=== PATIENT | female | born 1935 | race Caucasian/White ===

== ENCOUNTER → 2018-06-09 11:29 | Outpatient (CLI) | payer MEDICARE, OTHER, SELFPAY ==
[2018-06-09 13:38] LABS: BUN Creatinine Ratio 25.7 (6-22); Blood Urea Nitrogen 18 mg/dL (7-17); Estimated Glomerular Filt Rate > 60.0 mL/min (>60)
== END ==
PROVIDERS: PCP Internal Medicine; Visit Provider Internal Medicine
DX: M81.0 Age-related osteoporosis without current pathological fracture (principal)
CPT/HCPCS: 36415; 82565; 84520

== ENCOUNTER → 2018-06-19 13:32 | Oncology outpatient (ONC) | payer MEDICARE, OTHER, SELFPAY ==
[2018-06-19] MEDS: ZOLEDRONIC ACID 5 MG in SODIUM CHLORIDE 0.9% 100 ML 318.75 ML IV (14:33)
[2018-06-19 14:39] VITALS: BP 131/60; PULSE 69; RESP 16; TEMP 36.8; O2SAT 98
--- NOTE | 2018-06-19 14:42 | PC.NURSE ---
Patient here with Trevor for Amira. She has difficulty communicating and per this is due to her Lewy Body disease. She states having no pain or other issues. He states only issue is she does not drink enough fluids and they are working on that. Patient tolerated infusion without problem.
== END ==
LOC: ONC 13:34
PROVIDERS: Family Provider Internal Medicine; PCP Internal Medicine; Visit Provider Internal Medicine
DX: M81.0 Age-related osteoporosis without current pathological fracture (principal)
CPT/HCPCS: 96374; J3489

== ENCOUNTER 2018-11-28 09:45 | Emergency (ER) | payer MEDICARE, OTHER, SELFPAY ==
[2018-11-28 09:45] VITALS: BP 136/72; PULSE 65; RESP 20; TEMP 36.8; O2SAT 99
--- NOTE | 2018-11-28 10:08 | DI.RAD.S_ITS ---
PROCEDURE: XR CHEST 1V INDICATIONS: chest pain TECHNIQUE: One view of the chest was acquired. COMPARISON: [facility], CT, CT HEAD/BRAIN WO CON, 11/28/2018, 10:13. FINDINGS: Surgical changes and devices: None. Lungs and pleura: Lungs are clear, yet hyperexpanded. No pleural effusions or pneumothorax. Mediastinum: Mediastinal contours appear normal. Heart size is normal. Bones and chest wall: No suspicious bony lesions. Age-appropriate bony degenerative changes are seen. Overlying soft tissues appear unremarkable. IMPRESSION: Hyperexpanded lungs, without an acute cardiopulmonary process identified. Dictated by: Fritz Farr M.D. on 11/28/2018 at 9:29 Approved by: Fritz Farr M.D. on 11/28/2018 at 9:31
--- NOTE | 2018-11-28 10:19 | DI.CT.S_ITS ---
PROCEDURE: CT HEAD/BRAIN WO CON INDICATIONS: Full body tremors TECHNIQUE: Noncontrast 4.5 mm thick angled axial sections acquired from the foramen magnum to the vertex, with coronal and sagittal reformats. For radiation dose reduction, the following was used: automated exposure control, adjustment of mA and/or kV according to patient size. COMPARISON: , CR, XR CHEST 1V, 11/28/2018, 10:15. , MR, BRAIN W&WO CONTRAST, 04/20/2015, 13:36. FINDINGS: Image quality: Excellent. CSF spaces: Basal cisterns are patent. No extra-axial fluid collections. The ventricles are symmetric in size and shape. Brain: No intracranial bleeds or masses. There is cerebral volume loss for age, with resultant ventricular and sulcal prominence. There are periventricular and deep white matter chronic small vessel ischemic changes. There is intracranial internal carotid artery atherosclerosis. Skull and face: Calvarium and visualized facial bones appear intact, without suspicious lesions. Sinuses: Visualized sinuses and mastoids are clear. IMPRESSION: Unremarkable intracranial study for age. Note is made of age-appropriate brain parenchymal volume loss and chronic small vessel ischemic changes. Dictated by: Fritz Farr M.D. on 11/28/2018 at 9:31 Approved by: Fritz aFrr M.D. on 11/28/2018 at 9:31
[2018-11-28 10:36] LABS: Add Manual Diff / Slide Review NO; Basophils Absolute Auto 0 /uL (0-100); Basophils Percent Auto 0.7 % (0-2); Eosinophils Absolute Auto 100 /uL (0-450); Hematocrit 43.6 % (36-46); Hemoglobin 14.8 g/dL (12.0-16.0); Lymphocytes Absolute Auto 1000 /uL (1100-4500); Lymphocytes Percent Auto 20.1 % (25-40); Mean Corpuscular HGB Conc 33.9 % (30-36); Mean Corpuscular Hemoglobin 30.2 PG (26-34); Mean Corpuscular Volume 88.9 fL (80-100); Monocytes Absolute Auto 400 /uL (0-900); Monocytes Percent Auto 8.3 % (3-14); Neutrophils Absolute Auto 3600 /uL (1500-7000); Neutrophils Percent Auto 69.9 % (50-75); Platelet Count 198 X10^3/uL (150-400); Red Blood Cell Count 4.91 X10^6/uL (4.0-5.2); Red Cell Distribution Width 13.3 % (11.6-14.8); White Blood Cell Count 5.1 X10^3/uL (4.5-11.0)
[2018-11-28 10:44] LABS: Prothrombin Time 11.3 SECONDS (10.1-12.7)
[2018-11-28 10:47] LABS: PTT Partial Thromboplastin Tim 34 SECONDS (26.4-36.2)
[2018-11-28 10:48] LABS: Alanine Aminotransferase 22 IU/L (9-52); Albumin 4.2 g/dL (3.5-5.0); Albumin Globulin Ratio 1.6 (1.0-2.8); Alkaline Phosphatase 56 U/L (38-126); Aspartate Aminotransferase 40 IU/L (14-36); BUN Creatinine Ratio 27.1 (6-22); Bilirubin Total 0.9 mg/dL (0.2-1.3); Blood Urea Nitrogen 19 mg/dL (7-17); Calcium 9.2 mg/dL (8.4-10.2); Carbon Dioxide 29 mmol/L (22-32); Chloride 104 mmol/L (98-107); Creatine Kinase 57 U/L (30-135); Estimated Glomerular Filt Rate > 60.0 mL/min (>60); Globulin 2.7 g/dL (1.7-4.1); Glucose 100 mg/dL (80-110); HEMOLYSIS 18 (0-50); Lipase 205 U/L (23-300); Potassium 4.1 mmol/L (3.4-5.1); Sodium 140 mmol/L (137-145); Total Protein 6.9 g/dL (6.3-8.2)
[2018-11-28 11:00] LABS: Troponin I < 0.012 ng/mL (0.01-0.034)
[2018-11-28 11:10] VITALS: BP 142/61; PULSE 75; RESP 17; O2SAT 99
--- NOTE | 2018-11-28 11:17 | ED.NEUROSD ---
HPI - Neuro Symptoms/Deficit General Chief Complaint: Neuro Symptoms/Deficit Stated Complaint: TIA Check Per Doctor Time Seen by Provider: 11/28/18 10:49 Source: patient and family () Limitations: no limitations History of Present Illness HPI Narrative: This is an 83-year-old female comes to the emergency department with description of full body shaking or tremor this morning that lasted about an hour. Her stated occurred when she woke up. They states that she was alert and awake when it occurred. She was able to converse. They described as sort of a mild shaking of her entire body. It was not described as tonic clonic activity. She denies any headache, she denies any vision changes, she has some chronic issues with her speech and has known Lewy body dementia. She has not had any new speech changes, no weakness or numbness of her extremities they were working and she was able to lift and move them without issue. No new numbness or tingling. They have been adjusting her medications so the stated that may be part of this. She does have a history of issues with movement after receiving Haldol. Has been states she has had some Parkinson's like symptoms. Her father and uncle both had tremors as well. No fevers, she is always chilled per the family. Related Data Home Medications Medication Instructions Recorded Confirmed aspirin 81 mg PO QPM 11/28/18 11/28/18 cholecalciferol (vitamin D3) 1,000 unit PO DAILY 11/28/18 11/28/18 [Vitamin D3] escitalopram oxalate 5 mg PO BEDTIME 11/28/18 11/28/18 magnesium oxide 400 mg PO DAILY 11/28/18 11/28/18 memantine 5 mg PO BID 11/28/18 11/28/18 mirtazapine 15 mg PO BEDTIME 11/28/18 11/28/18 rosuvastatin 10 mg PO BEDTIME 11/28/18 11/28/18 Allergies Allergy/AdvReac Type Severity Reaction Status Date / Time No Known Drug Allergies Allergy Verified 11/28/18 10:07 Review of Systems Review of Systems ROS Unobtainable: All systems reviewed & are unremarkable except as noted in HPI and below Constitutional Reports chills (Always chills), Denies fever(s), Denies headache(s), Denies lethargy and Denies weakness ENT Ears, Nose, Mouth, and Throat: Denies headache(s) Cardiovascular Denies chest pain, Denies syncope, Denies rapid heart rate, Denies irregular heart rhythm, Denies lightheadedness, Denies dyspnea and Denies dyspnea on exertion Respiratory Denies change in phlegm color, Denies chest congestion, Denies dyspnea, Denies dyspnea on exertion and Denies wheezing Gastrointestinal Gastrointestinal: Denies abdominal pain, Denies change in bowel habits, Denies diarrhea, Denies nausea and Denies vomiting Genitourinary Denies hematuria, Denies dysuria, Denies flank pain, Denies urinary incontinence and Denies urinary urgency Musculoskeletal Reports as per HPI, Denies abnormal gait, Denies muscle weakness, Denies numbness, Denies radiating pain into limb and Denies tingling Neurologic Reports as per HPI, Reports abnormal speech (chronically, no new changes), Denies abnormal gait, Denies confusion, Denies syncope, Denies headache(s), Denies focal weakness, Denies numbness, Denies sensory deficit, Denies tingling, Reports tremor(s) and Denies weakness Psychiatric Denies confusion Allergic/Immunologic Denies wheezing [facility] Medical History (Updated 11/28/18 @ 11:28 by Kika Zuluaga DO) Lewy body dementia (Chronic) Surgical History Status post surgery (03/14/10) Social History Smoking Status: Never smoker Social History (Updated 11/28/18 @ 11:22 by Kika Zuluaga DO) marital status: Smoking Status: Never smoker Exam Narrative Exam Narrative: GEN: well nourished, well appearing female, alert and oriented x 3, patient appears to be in no acute distress. HEENT: Atraumatic, pupils are equal round reactive to light, extraocular movements are intact, nares are clear. Throat is clear without any exudates, erythema, tonsillar enlargement or uvular deviation, no facial droop. HEART: Regular rate and rhythm without murmur, clicks, rubs. No carotid bruits, pulses are equal in upper and lower extremities LUNGS:Lungs clear to auscultation, no wheezes, rales, crackles, chest moves symmetrically ABD:bowel sounds normal, soft, non-tender, no guarding, rebound, rigidity, no masses noted, no hepatosplenomegaly :No CVA tenderness MSCL: Non-tender, no muscle atrophy, muscles strength 5/5 upper and lower extremities, full range of motion NEURO:CN 2-12 intact, sensation normal, reflexes 2/4 upper and lower extremities. finger nose finger test normal, heel pitt test normal, mild tremor in upper extremities on exam. No dysarthria or aphasia noted. Initial Vital Signs Initial Vital Signs: Vital Signs Temperature 98.2 F 11/28/18 09:45 Pulse Rate 65 11/28/18 09:45 Respiratory Rate 20 11/28/18 09:45 Blood Pressure 136/72 11/28/18 09:45 Pulse Oximetry 99 11/28/18 09:45 Scores NIH Stroke Scale Level of Conciousness: Alert, keenly responsive Ask month/age: Answers both questions correctly. Open/close eyes, close hand: Performs both tasks correctly Best gaze horizontal: Normal Visual silver: No visual loss Facial palsy: Normal symetrical movement Left arm drift: No drift for full 10 sec Right arm drift: No drift for full 10 sec Left leg drift: No drift for full 10 sec Right leg drift: No drift for full 10 sec Limb ataxia: Absent Sensory on face/arms/legs: Normal, no sensory loss Best language: No aphasia, normal Dysarthria: Normal Extinction or inattention: No abnormality Total NIH Stroke scale score: 0 Course Orders Ordered: ED Orders 11/28/18 10:00 EKG-12 Lead Stat 11/28/18 10:08 XR chest 1V Stat 11/28/18 10:19 CT head/brain wo con Stat 11/28/18 10:20 Complete Blood Count AUTO DIFF Stat Comprehensive Metabolic Panel Stat Lipase Stat Partial Thromboplastin Time Stat Prothrombin Time INR Stat Troponin & CK Cardiac Panel Stat Vital Signs - 8 hr 11/28/18 11:10 11/28/18 11:50 11/28/18 12:16 Pulse Rate 75 60 64 Respiratory Rate 17 13 20 Blood Pressure 112/55 L Blood Pressure [Right Arm] 142/61 H 119/43 L Pulse Oximetry 99 99 99 MDM - Neuro Symptoms/Deficit Lab Data Attestation: I reviewed the patient's lab results. Result diagrams: 11/28/18 10:20 11/28/18 10:20 Lab Results 07/19/19 07/19/19 07/19/19 Range/Units 10:20 10:20 10:20 WBC 5.1 (4.5-11.0) X10^3/uL RBC 4.91 (4.0-5.2) X10^6/uL Hgb 14.8 (12.0-16.0) g/dL Hct 43.6 (36-46) % MCV 88.9 (80-100) fL MCH 30.2 (26-34) PG MCHC 33.9 (30-36) % RDW 13.3 (11.6-14.8) % Plt Count 198 (150-400) X10^3/uL Neut % (Auto) 69.9 (50-75) % Lymph % (Auto) 20.1 L (25-40) % [place] % (Auto) 8.3 (3-14) % Eos % (Auto) 1.0 L (2-4) % Baso % (Auto) 0.7 (0-2) % Neut # (Auto) 3600 (0376-8912) /uL Lymph # (Auto) 1000 L (8893-9062) /uL [place] # (Auto) 400 (0-900) /uL Eos # (Auto) 100 (0-450) /uL Baso # (Auto) 0 (0-100) /uL PT 11.3 (10.1-12.7) SECONDS INR 1.0 (0.9-1.3) APTT 34 (26.4-36.2) SECONDS Sodium 140 (137-145) mmol/L Potassium 4.1 (3.4-5.1) mmol/L Chloride 104 (98-107) mmol/L Carbon Dioxide 29 (22-32) mmol/L BUN 19 H (7-17) mg/dL Creatinine 0.70 (0.52-1.04) mg/dL Estimated GFR > 60.0 (>60) mL/min BUN/Creatinine Ratio 27.1 H (6-22) Glucose 100 (80-110) mg/dL Calcium 9.2 (8.4-10.2) mg/dL Total Bilirubin 0.9 (0.2-1.3) mg/dL AST 40 H (14-36) IU/L ALT 22 (9-52) IU/L Alkaline Phosphatase 56 (38-126) U/L Total Creatine Kinase 57 (30-135) U/L CK-MB (CK-2) TNP CK-MB (CK-2) Rel Index TNP Troponin I < 0.012 (0.01-0.034) ng/mL Total Protein 6.9 (6.3-8.2) g/dL Albumin 4.2 (3.5-5.0) g/dL Globulin 2.7 (1.7-4.1) g/dL Albumin/Globulin Ratio 1.6 (1.0-2.8) Lipase 205 (23-300) U/L Urine Dip Bedside Urine Glucose Negative Bedside Urine Bilirubin - Negative Bedside Urine Ketone - Negative Urine Specific [place] 1.015 Bedside Urine Occult Blood - Negative Bedside Urine pH 7.0 Bedside Urine Protein - Negative Bedside Urine Urobilinogen - Negative Bedside Urine Nitrite - Negative Bedside Urine Leukocytes - Negative Esterase Imaging Data CT scan - head: Radiologist's impression: [address] [address] [address] Scan Report Signed Patient: Eli Rmoero JMR#: [id number] : 8Acct:[id number] Age/Sex: 83 / FDate of Service: 11/28/18 Loc: ED Accession Number: [id number] Procedure: CT head/brain wo con Ordering Provider: Kika Zuluaga D.O. PROCEDURE: CT HEAD/BRAIN WO CON INDICATIONS: Full body tremors TECHNIQUE: Noncontrast 4.5 mm thick angled axial sections acquired from the foramen magnum to the vertex, with coronal and sagittal reformats. For radiation dose reduction, the following was used: automated exposure control, adjustment of mA and/or kV according to patient size. COMPARISON: [facility], CR, XR CHEST 1V, 11/28/2018, 10:15. [facility], MR, BRAIN W&WO CONTRAST, 04/20/2015, 13:36. FINDINGS: Image quality: Excellent. CSF spaces: Basal cisterns are patent. No extra-axial fluid collections. The ventricles are symmetric in size and shape. Brain: No intracranial bleeds or masses. There is cerebral volume loss for age, with resultant ventricular and sulcal prominence. There are periventricular and deep white matter chronic small vessel ischemic changes. There is intracranial internal carotid artery atherosclerosis. Skull and face: Calvarium and visualized facial bones appear intact, without suspicious lesions. Sinuses: Visualized sinuses and mastoids are clear. IMPRESSION: Unremarkable intracranial study for age. Note is made of age-appropriate brain parenchymal volume loss and chronic small vessel ischemic changes. Dictated by: Fritz Farr M.D. on 11/28/2018 at 9:31 Approved by: Fritz Farr M.D. on 11/28/2018 at 9:31 Chest x-ray: Radiologist's impression: [address] [address] XRay Report Signed Patient: Eli Romero JMR#: [id number] : 1936Acct:[id number] Age/Sex: 83 / FDate of Service: 11/28/18 Loc: ED Accession Number: [id number] Procedure: XR chest 1V Ordering Provider: Kika Zuluaga D.O. PROCEDURE: XR CHEST 1V INDICATIONS: chest pain TECHNIQUE: One view of the chest was acquired. COMPARISON: [facility], CT, CT HEAD/BRAIN WO CON, 11/28/2018, 10:13. FINDINGS: Surgical changes and devices: None. Lungs and pleura: Lungs are clear, yet hyperexpanded. No pleural effusions or pneumothorax. Mediastinum: Mediastinal contours appear normal. Heart size is normal. Bones and chest wall: No suspicious bony lesions. Age-appropriate bony degenerative changes are seen. Overlying soft tissues appear unremarkable. IMPRESSION: Hyperexpanded lungs, without an acute cardiopulmonary process identified. Dictated by: Fritz Farr M.D. on 11/28/2018 at 9:29 Approved by: Fritz Farr M.D. on 11/28/2018 at 9:31 ECG Data Attestation: I personally reviewed and interpreted this ECG as follows: Interpretation: Rate of 62. VA of 203, QRS 84 and QTC of 400. No ST elevation or depression. MDM Narrative Medical decision making narrative: Patient's head CT, lab work did not show any acute changes. I was able to obtain patient's MRI report which showed mild progression of moderate microvascular ischemic changes compared to April 2015. No acute infarct or mass lesion. Focus of micro hemorrhage within the right parietal lobe new compared to prior exam. Neuro quant analysis reports moderate atrophy of bilateral hippocampal I compared to normal values. There was no MRA. Discussed with patient and family she has had tremors but not quite like this in the past. Patient's urine is negative,, coags and CMP along with troponin are negative except for a slightly elevated BUN an AST at 40. I suspect that this was some progression or a larger episode of her prior episodes of tremor related to her Lewy body dementia and Parkinson's like symptoms. Discussed with patient and family I would like them to follow up. There is potential for medication reaction but sounds like this is and more isolated episode so I would not adjust her medications at this time. Patient's NIH scale is 0 and by their description I do not suspect stroke being the cause, seizures also unlikely. Discharge Plan Departure Patient Disposition: Home Clinical Impression: Tremor Discharge Date/Time: 11/28/18 12:17 Interventions: ED Discharge Assessment Last Done: 11/28/18 12:16 Instructions: Lewy Body Disease Activity Restrictions/Additional Instructions: Follow-up with your primary care physician in the next 2-3 days for recheck. Call for an appointment. Continue your home medications as prescribed. Return to emergency department for fevers greater than 100.4 F, altered mental status, passing out, new chest pain, shortness of breath, persistent vomiting, black or bloody stools or other new or concerning symptoms. Prescriptions: No Action mirtazapine 15 mg tablet 15 mg PO BEDTIME RF: 0 rosuvastatin 10 mg tablet 10 mg PO BEDTIME RF: 0 memantine 5 mg tablet 5 mg PO BID RF: 0 escitalopram oxalate 5 mg tablet 5 mg PO BEDTIME RF: 0 aspirin 81 mg Tablet,Delayed Release (Dr/Ec) 81 mg PO QPM RF: 0 cholecalciferol (vitamin D3) [Vitamin D3] 1,000 unit Capsule 1,000 unit PO DAILY RF: 0 magnesium oxide 400 mg magnesium Capsule 400 mg PO DAILY RF: 0 Referrals: Alma Rizzo MD [Primary Care Provider] -
--- NOTE | 2018-11-28 11:28 | ED_ITS ---
HPI - Neuro Symptoms/Deficit General Chief Complaint: Neuro Symptoms/Deficit Stated Complaint: TIA Check Per Doctor Time Seen by Provider: 11/28/18 10:49 Source: patient and family () Limitations: no limitations History of Present Illness HPI Narrative: This is an 83-year-old female comes to the emergency department with description of full body shaking or tremor this morning that lasted about an hour. Her stated occurred when she woke up. They states that she was alert and awake when it occurred. She was able to converse. They described as sort of a mild shaking of her entire body. It was not described as tonic c lonic activity. She denies any headache, she denies any vision changes, she has some chronic issues with her speech and has known Lewy body dementia. She has not had any new speech changes, no weakness or numbness of her extremities they were working and she was able to lift and move them without issue. No new numbness or tingling. They have been adjusting her medications so the stated that may be part of this. She does have a history of issues with movement after receiving Haldol. Has been states she has had some Parkinson's like symptoms. Her father and uncle both had tremors as well. No fevers, she is always chilled per the family. Related Data Home Medications Medication Instructions Recorded Confirmed aspirin 81 mg PO QPM 11/28/18 11/28/18 cholecalciferol (vitamin D3) 1,000 unit PO DAILY 11/28/18 11/28/18 [Vitamin D3] escitalopram oxalate 5 mg PO BEDTIME 11/28/18 11/28/18 magnesium oxide 400 mg PO DAILY 11/28/18 11/28/18 memantine 5 mg PO BID 11/28/18 11/28/18 mirtazapine 15 mg PO BEDTIME 11/28/18 11/28/18 rosuvastatin 10 mg PO BEDTIME 11/28/18 11/28/18 Allergies Allergy/AdvReac Type Severity Reaction Status Date / Time No Known Drug Allergies Allergy Verified 11/28/18 10:07 Review of Systems Review of Systems ROS Unobtainable: All systems reviewed & are unremarkable except as noted in HPI and below Constitutional Reports chills (Always chills), Denies fever(s), Denies headache(s), Denies lethargy and Denies weakness ENT Ears, Nose, Mouth, and Throat: Denies headache(s) Cardiovascular Denies chest pain, Denies syncope, Denies rapid heart rate, Denies irregular heart rhythm, Denies lightheadedness, Denies dyspnea and Denies dyspnea on ex ertion Respiratory Denies change in phlegm color, Denies chest congestion, Denies dyspnea, Denies dyspnea on exertion and Denies wheezing Gastrointestinal Gastrointestinal: Denies abdominal pain, Denies change in bowel habits, Denies diarrhea, Denies nausea and Denies vomiting Genitourinary Denies hematuria, Denies dysuria, Denies flank pain, Denies urinary incontinence and Denies urinary urgency Musculoskeletal Reports as per HPI, Denies abnormal gait, Denies muscle weakness, Denies numbness, Denies radiating pain into limb and Denies tingling Neurologic Reports as per HPI, Reports abnormal speech (chronically, no new changes), Denies abnormal gait, Denies confusion, Denies syncope, Denies headache(s), Denies focal weakness, Denies numbness, Denies sensory deficit, Denies tingling, Reports tremor(s) and Denies weakness Psychiatric Denies confusion Allergic/Immunologic Denies wheezing [facility] Medical History (Updated 11/28/18 @ 11:28 by Kika Zuluaga DO) Lewy body dementia (Chronic) Surgical History Status post surgery (03/14/10) Social History Smoking Status: Never smoker Social History (Updated 11/28/18 @ 11:22 by Kika Zuluaga DO) marital status: Smoking Status: Never smoker Exam Narrative Exam Narrative: GEN: well nourished, well appearing female, alert and oriented x 3, patient appears to be in no acute distress. HEENT: Atraumatic, pupils are equal round reactive to light, extraocular movements are intact, nares are clear. Throat is clear without any exudates, erythema, tonsillar enlargement or uvular deviation, no facial droop. HEART: Regular rate and rhythm without murmur, clicks, rubs. No carotid bruits, pulses are equal in upper and lower extremities LUNGS:Lungs clear to auscultation, no wheezes, rales, crackles, chest moves symmetrically ABD:bowel sounds normal, soft, non-tender, no guarding, rebound, rigidity, no masses noted, no hepatosplenomegaly :No CVA tenderness MSCL: Non-tender, no muscle atrophy, muscles strength 5/5 upper and lower extremities, full range of motion NEURO:CN 2-12 intact, sensation normal, reflexes 2/4 upper and lower extremities. finger nose finger test normal, heel pitt test normal, mild tremor in upper extremities on exam. No dysarthria or aphasia noted. Initial Vital Signs Initial Vital Signs: Vital Signs Temperature 98.2 F 11/28/18 09:45 Pulse Rate 65 11/28/18 09:45 Respiratory Rate 20 11/28/18 09:45 Blood Pressure 136/72 11/28/18 09:45 Pulse Oximetry 99 11/28/18 09:45 Scores NIH Stroke Scale Level of Conciousness: Alert, keenly responsive Ask month/age: Answers both questions correctly. Open/close eyes, close hand: Performs both tasks correctly Best gaze horizontal: Normal Visual silver: No visual loss Facial palsy: Normal symetrical movement Left arm drift: No drift for full 10 sec Right arm drift: No drift for full 10 sec Left leg drift: No drift for full 10 sec Right leg drift: No drift for full 10 sec Limb ataxia: Absent Sensory on face/arms/legs: Normal, no sensory loss Best language: No aphasia, normal Dysarthria: Normal Extinction or inattention: No abnormality Total NIH Stroke scale score: 0 Course Orders Ordered: ED Orders 11/28/18 10:00 EKG-12 Lead Stat 11/28/18 10:08 XR chest 1V Stat 11/28/18 10:19 CT head/brain wo con Stat 11/28/18 10:20 Complete Blood Count AUTO DIFF Stat Comprehensive Metabolic Panel Stat Lipase Stat Partial Thromboplastin Time Stat Prothrombin Time INR Stat Troponin & CK Cardiac Panel Stat Vital Signs - 8 hr 11/28/18 11:10 11/28/18 11:50 11/28/18 12:16 Pulse Rate 75 60 64 Respiratory Rate 17 13 20 Blood Pressure 112/55 L Blood Pressure [Right Arm] 142/61 H 119/43 L Pulse Oximetry 99 99 99 MDM - Neuro Symptoms/Deficit Lab Data Attestation: I reviewed the patient's lab results. Result diagrams: 11/28/18 10:20 11/28/18 10:20 Lab Results 11/28/18 11/28/18 11/28/18 Range/Units 10:20 10:20 10:20 WBC 5.1 (4.5-11.0) X10^3/uL RBC 4.91 (4.0-5.2) X10^6/uL Hgb 14.8 (12.0-16.0) g/dL Hct 43.6 (36-46) % MCV 88.9 (80-100) fL MCH 30.2 (26-34) PG MCHC 33.9 (30-36) % RDW 13.3 (11.6-14.8) % Plt Count 198 (150-400) X10^3/uL Neut % (Auto) 69.9 (50-75) % Lymph % (Auto) 20.1 L (25-40) % [place] % (Auto) 8.3 (3-14) % Eos % (Auto) 1.0 L (2-4) % Baso % (Auto) 0.7 (0-2) % Neut # (Auto) 3600 (1089-1520) /uL Lymph # (Auto) 1000 L (1975-6790) /uL [place] # (Auto) 400 (0-900) /uL Eos # (Auto) 100 (0-450) /uL Baso # (Auto) 0 (0-100) /uL PT 11.3 (10.1-12.7) SECONDS INR 1.0 (0.9-1.3) APTT 34 (26.4-36.2) SECONDS Sodium 140 (137-145) mmol/L Potassium 4.1 (3.4-5.1) mmol/L Chloride 104 (98-107) mmol/L Carbon Dioxide 29 (22-32) mmol/L BUN 19 H (7-17) mg/dL Creatinine 0.70 (0.52-1.04) mg/dL Estimated GFR > 60.0 (>60) mL/min BUN/Creatinine Ratio 27.1 H (6-22) Glucose 100 (80-110) mg/dL Calcium 9.2 (8.4-10.2) mg/dL Total Bilirubin 0.9 (0.2-1.3) mg/dL AST 40 H (14-36) IU/L ALT 22 (9-52) IU/L Alkaline Phosphatase 56 (38-126) U/L Total Creatine Kinase 57 (30-135) U/L CK-MB (CK-2) TNP CK-MB (CK-2) Rel Index TNP Troponin I < 0.012 (0.01-0.034) ng/mL Total Protein 6.9 (6.3-8.2) g/dL Albumin 4.2 (3.5-5.0) g/dL Globulin 2.7 (1.7-4.1) g/dL Albumin/Globulin Ratio 1.6 (1.0-2.8) Lipase 205 (23-300) U/L Urine Dip Bedside Urine Glucose Negative Bedside Urine Bilirubin - Negative Bedside Urine Ketone - Negative Urine Specific [place] 1.015 Bedside Urine Occult Blood - Negative Bedside Urine pH 7.0 Bedside Urine Protein - Negative Bedside Urine Urobilinogen - Negative Bedside Urine Nitrite - Negative Bedside Urine Leukocytes - Negative Esterase Imaging Data CT scan - head: Radiologist's impression: [address] [address] [address] Scan Report Signed Patient: Eli Romero R#: [id number] : 8Acct:[id number] Age/Sex: 83 / FDate of Service: 11/28/18 Loc: ED Accession Number: [id number] Procedure: CT head/brain wo con Ordering Provider: Kika Zuluaga D.O. PROCEDURE: CT HEAD/BRAIN WO CON INDICATIONS: Full body tremors TECHNIQUE: Noncontrast 4.5 mm thick angled axial sections acquired from the foramen magnum to the vertex, with coronal and sagittal reformats. For radiation dose reduction, the following was used: automated exposure control, adjustment of mA and/or kV according to patient size. COMPARISON: [facility], CR, XR CHEST 1V, 11/28/2018, 10:15. [facility], MR, BRAIN W&WO CONTRAST, 04/20/2015, 13:36. FINDINGS: Image quality: Excellent. CSF spaces: Basal cisterns are patent. No extra-axial fluid collections. The ventricles are symmetric in size and shape. Brain: No intracranial bleeds or masses. There is cerebral volume loss for age, with resultant ventricular and sulcal prominence. There are periventricular and deep white matter chronic small vessel ischemic changes. There is intracranial internal carotid artery atherosclerosis. Skull and face: Calvarium and visualized facial bones appear intact, without suspicious lesions. Sinuses: Visualized sinuses and mastoids are clear. IMPRESSION: Unremarkable intracranial study for age. Note is made of age-appropriate brain parenchymal volume loss and chronic small vessel ischemic changes. Dictated by: Fritz Farr M.D. on 11/28/2018 at 9:31 Approved by: Fritz Farr M.D. on 11/28/2018 at 9:31 Chest x-ray: Radiologist's impression: [address] [address] XRay Report Signed Patient: Eli Romero JMR#: [id number] : 1936Acct:[id number] Age/Sex: 83 / FDate of Service: 11/28/18 Loc: ED Accession Number: [id number] Procedure: XR chest 1V Ordering Provider: Kika Zuluaga D.O. PROCEDURE: XR CHEST 1V INDICATIONS: chest pain TECHNIQUE: One view of the chest was acquired. COMPARISON: [facility], CT, CT HEAD/BRAIN WO CON, 11/28/2018, 10:13. FINDINGS: Surgical changes and devices: None. Lungs and pleura: Lungs are clear, yet hyperexpanded. No pleural effusions or pneumothorax. Mediastinum: Mediastinal contours appear normal. Heart size is normal. Bones and chest wall: No suspicious bony lesions. Age-appropriate bony degenerative changes are seen. Overlying soft tissues appear unremarkable. IMPRESSION: Hyperexpanded lungs, without an acute cardiopulmonary process identified. Dictated by: Fritz Farr M.D. on 11/28/2018 at 9:29 Approved by: Fritz Farr M.D. on 11/28/2018 at 9:31 ECG Data Attestation: I personally reviewed and interpreted this ECG as follows: Interpretation: Rate of 62. [place] of 203, QRS 84 and QTC of 400. No ST elevation or depression. MDM Narrative Medical decision making narrative: Patient's head CT, lab work did not show any acute changes. I was able to obtain patient's MRI report which showed mild progression of moderate microvascular ischemic changes compared to April 2015. No acute infarct or mass lesion. Focus of micro hemorrhage within the right parietal lobe new compared to prior exam. Neuro quant analysis reports moderate atrophy of bilateral hippocampal I compared to normal values. There was no MRA. Discussed with patient and family she has had tremors but not quite like this in the past. Patient's urine is negative,, coags and CMP along with troponin are negative except for a slightly elevated BUN an AST at 40. I suspect that this was some progression or a larger episode of her prior episodes of tremor related to her Lewy body dementia and Parkinson's like symptoms. Discussed with patient and family I would like them to follow up. There is potential for medication reaction but sounds like this is and more isolated episode so I would not adjust her medications at this time. Patient's NIH scale is 0 and by their description I do not suspect stroke being the cause, seizures also unlikely. Discharge Plan Departure Patient Disposition: Home Clinical Impression: Tremor Discharge Date/Time: 11/28/18 12:17 Interventions: ED Discharge Assessment Last Done: 11/28/18 12:16 Instructions: Lewy Body Disease Activity Restrictions/Additional Instructions: Follow-up with your primary care physician in the next 2-3 days for recheck. Call for an appointment. Continue your home medications as prescribed. Return to emergency department for fevers greater than 100.4 F, altered mental status, passing out, new chest pain, shortness of breath, persistent vomiting, black or bloody stools or other new or concerning symptoms. Prescriptions: No Action mirtazapine 15 mg tablet 15 mg PO BEDTIME RF: 0 rosuvastatin 10 mg tablet 10 mg PO BEDTIME RF: 0 memantine 5 mg tablet 5 mg PO BID RF: 0 escitalopram oxalate 5 mg tablet 5 mg PO BEDTIME RF: 0 aspirin 81 mg Tablet,Delayed Release (Dr/Ec) 81 mg PO QPM RF: 0 cholecalciferol (vitamin D3) [Vitamin D3] 1,000 unit Capsule 1,000 unit PO DAILY RF: 0 magnesium oxide 400 mg magnesium Capsule 400 mg PO DAILY RF: 0 Referrals: Alma Rizzo MD [Primary Care Provider] -
[2018-11-28 11:50] VITALS: BP 119/43; PULSE 60; RESP 13; O2SAT 99
[2018-11-28 12:16] VITALS: BP 112/55; PULSE 64; RESP 20; O2SAT 99
== END 2018-11-28 12:17 | disposition home or self-care (01) ==
PROVIDERS: Emergency Provider Emergency Medicine; Family Provider Internal Medicine; PCP Internal Medicine
DX: R25.1 Tremor, unspecified (principal); R41.0 Disorientation, unspecified; Z79.82 Long term (current) use of aspirin
CPT/HCPCS: 36591; 70450; 71045; 80053; 81003; 82550; 83690; 84484; 85025; 85610; 85730; 93005; 93041; 99284; 99285

== ENCOUNTER → 2019-04-27 12:19 | Outpatient (CLI) | payer MEDICARE, OTHER, SELFPAY ==
[2019-04-27 13:23] LABS: BUN Creatinine Ratio 22.5 (6-22); Blood Urea Nitrogen 18 mg/dL (7-17); Estimated Glomerular Filt Rate > 60.0 mL/min (>60)
== END ==
PROVIDERS: Visit Provider Internal Medicine
DX: G31.83 Neurocognitive disorder with Lewy bodies (principal); I10 Essential (primary) hypertension
CPT/HCPCS: 36415; 82565; 84520

== ENCOUNTER → 2020-01-21 14:37 | Outpatient (CLI) | payer MEDICARE, OTHER, SELFPAY | PROVIDERS: PCP Internal Medicine; Referring Provider Internal Medicine; Visit Provider Internal Medicine | DX: M81.0 Age-related osteoporosis without current pathological fracture (principal); Z78.0 Asymptomatic menopausal state; Z82.62 Family history of osteoporosis | CPT/HCPCS: 77080 ==

== ENCOUNTER → 2020-10-04 18:47 | Outpatient (ROUT) | payer MEDICARE, OTHER, SELFPAY ==
[2020-10-04 19:38] LABS: Aspartate Aminotransferase 34 IU/L (14-36); BUN Creatinine Ratio 28.8 (6-22); Blood Urea Nitrogen 23 mg/dL (7-17); Calcium 9.6 mg/dL (8.4-10.2); Carbon Dioxide 28 mmol/L (22-32); Chloride 103 mmol/L (98-107); Cholesterol 160 mg/dL (140-199); Estimated Glomerular Filt Rate > 60.0 mL/min (>60); Glucose 97 mg/dL (80-110); HDL Cholesterol 75 mg/dL (40-60); LDL Cholesterol Calculated 59 mg/dL (<100); Sodium 137 mmol/L (137-145); Triglycerides 130 mg/dL (35-150)
[2020-10-04 19:42] LABS: HEMOLYSIS 19 (0-50); Potassium 4.7 mmol/L (3.4-5.1)
[2020-10-04 20:04] LABS: TSH w/ Reflex to FT4 1.24 uIU/mL (0.47-4.68)
== END ==
PROVIDERS: PCP Internal Medicine; Visit Provider Internal Medicine
DX: E78.2 Mixed hyperlipidemia (principal)
CPT/HCPCS: 80048; 80061; 84443; 84450

== ENCOUNTER → 2021-03-06 15:27 | Outpatient (CLI) | payer MEDICARE, OTHER, SELFPAY ==
--- NOTE | 2021-03-06 | DI.MRI.S_ITS ---
PROCEDURE: MR HEAD/BRAIN WO CON INDICATIONS: Dementia with Lewy bodies TECHNIQUE: Non-contrast axial T1 spin echo, axial T2 fast spin echo, sagittal and axial FLAIR, coronal T2 fast spin echo, axial gradient echo, axial diffusion and ADC through the brain. COMPARISON: None. FINDINGS: Image quality: Excellent. CSF spaces: Ventricles appear symmetric in size and shape. Basal cisterns are patent. No extra-axial fluid collections. Brain: No intracranial bleeds or mass effects. There is cerebral volume loss for age. There are periventricular and deep white matter chronic small vessel ischemic changes. Brainstem appears normal. Diffusion-weighted images show no acute ischemic insults. No chronic ischemic insults. Normal intravascular flow voids are present. Skull and face: Calvarial bone marrow is normal in signal. Orbits are normal. Sinuses: Sinuses and mastoids are clear. IMPRESSION: 1. Volume loss and small vessel ischemic disease. 2. No acute process. No recent infarct. Dictated by: Tito Delgadillo M.D. on 03/06/2021 at 16:30 Approved by: Tito Delgadillo M.D. on 03/06/2021 at 16:59
== END ==
PROVIDERS: PCP Internal Medicine; Referring Provider Psychiatry & Neurology Neurology; Visit Provider Psychiatry & Neurology Neurology
DX: G31.83 Neurocognitive disorder with Lewy bodies (principal); F02.80 Dementia in other diseases classified elsewhere, unspecified severity, without behavioral disturbance, psychotic disturbance, mood disturbance, and anxiety
CPT/HCPCS: 70551